=== PATIENT | female | born 1955 | race Caucasian/White ===

== ENCOUNTER → 2019-07-22 | Outpatient (CLI) | payer OTHER ==
[~2019-07-22] MED LIST: LISI1TAB51 PO; OXYB5TAB15 PO; TAMO20TA4 PO
== END | disposition home or self-care (01) ==
LOC: RAH 13:00
PROVIDERS: ATTEND Nurse Practitioner Adult Health
DX: Z13.6 Encounter for screening for cardiovascular disorders (principal); K76.0 Fatty (change of) liver, not elsewhere classified
CPT/HCPCS: 75571